=== PATIENT | female | born 1970 | race Caucasian/White ===

== ENCOUNTER 2018-02-06 06:18 | Day surgery (SDC) | payer BC ==
[2018-02-06] MEDS ORDERED: SOD CHLORIDE 0.9% 1,000 ML IV (07:00)
[2018-02-06] MEDS ORDERED: BALANCED SALT SOLN 15 ML OPH IRRIG (07:00)
[2018-02-06] MEDS ORDERED: MITOMYCIN 5 MG INJ OP (08:30)
[2018-02-06] MEDS: PROPARACAINE 0.5% 15 ML OPH OPER (09:01)
[2018-02-06] MEDS ORDERED: PROPARACAINE 0.5% 15 ML OPH OPER (09:02)
[2018-02-06] MEDS ORDERED: MOXIFLOXACIN 0.5% 3 ML OPH OPER (09:02)
[2018-02-06] MEDS: MOXIFLOXACIN 0.5% 3 ML OPH OPER (09:02)
[2018-02-06] MEDS: PREDNISOLONE ACET 1% 5 ML OPH OPER (09:02)
[2018-02-06] MEDS ORDERED: FENTAnyl 50 MCG/ML VIAL (09:45)
[2018-02-06] MEDS ORDERED: MIDAZOLAM 1 MG/ML 2 ML INJ (09:46)
[2018-02-06] MEDS ORDERED: ONDANSETRON 4 MG INJ (09:46)
[2018-02-06] MEDS ORDERED: TOBRAMYCIN/DEXAMETH 2.5 ML OPH (09:53)
[2018-02-06] MEDS ORDERED: LIDOCAINE 1%/EPI 30 ML INJ (09:53)
[2018-02-06] MEDS: LIDOCAINE 1.5%/EPI MPF (SDV) 30 ML VIAL INJ (10:00)
[2018-02-06] MEDS: TOBRAMYCIN/DEXAMETH 3.5 GM OPH OINT RIGHT EYE (10:41)
== END 2018-02-06 12:20 | disposition home or self-care (01) ==
LOC: SDS 06:18
DX: H11.001 Unspecified pterygium of right eye (principal)
CPT/HCPCS: 65426; 84703; 88305